=== PATIENT | female | born 1995 | race Caucasian/White ===

== ENCOUNTER → 2025-02-23 14:09 | Outpatient (REF) | payer OTHER, SELFPAY | LOC: HWRAD 14:09 | PROVIDERS: ATTENDING PHYSICIAN Obstetrics & Gynecology; FAMILY PHYSICIAN Family Medicine | DX: Z34.90 Encounter for supervision of normal pregnancy, unspecified, unspecified trimester (principal) | CPT/HCPCS: 76801 ==

== ENCOUNTER → 2025-03-30 14:19 | Outpatient (REF) | payer OTHER, SELFPAY | LOC: PNTC 14:19 | PROVIDERS: ATTENDING PHYSICIAN Obstetrics & Gynecology | DX: Z36.0 Encounter for antenatal screening for chromosomal anomalies (principal); Z36.82 Encounter for antenatal screening for nuchal translucency | CPT/HCPCS: 76801; 76813 ==

== ENCOUNTER → 2025-05-19 15:50 | Outpatient (REF) | payer OTHER, SELFPAY | LOC: PNTC 15:50 | PROVIDERS: ATTENDING PHYSICIAN Obstetrics & Gynecology | DX: Z34.90 Encounter for supervision of normal pregnancy, unspecified, unspecified trimester (principal) | CPT/HCPCS: 76805; 76817 ==

== ENCOUNTER 2025-06-15 15:58 | Observation (INO) | payer OTHER, SELFPAY | END 2025-06-15 17:05 | disposition home or self-care (01) | LOC: PNTC-IN 15:58 | PROVIDERS: ADMITTING PHYSICIAN Obstetrics & Gynecology | DX: Z04.1 Encounter for examination and observation following transport accident (principal); Z3A.24 24 weeks gestation of pregnancy | CPT/HCPCS: G0378 ==

== ENCOUNTER 2025-09-30 19:27 | Inpatient (IN) | payer OTHER, SELFPAY ==
[2025-09-30 20:20] VITALS: BP 137/91; BMI 32.2
[2025-09-30 20:29] LABS: Hematocrit 38.1 % (37.0-47.0); Hemoglobin 12.7 g/dL (12.0-16.0); Mean Corp Hgb Conc. 33.3 g/dL (33.0-37.0); Mean Corpuscular Volume 90.1 fL (81.0-99.0); Nucleated Red Blood Cells % 0 %; Platelet Count 169 10^3/uL (130-400); Red Cell Dist. Width 13.2 % (11.5-14.5)
[2025-09-30] MEDS: CYTOTEC 25 MICROGRAM VAG (20:55)
[2025-09-30 21:39] LABS: ALT (SGPT) 16 U/L (0-35); AST (SGOT) 23 U/L (14-36); Albumin 3.7 g/dl (3.5-5.0); Alkaline Phosphatase 184 U/L (38-126); Blood Urea Nitrogen 10 mg/dl (7-17); Calcium 9.4 mg/dl (8.4-10.2); Carbon Dioxide 22 mmol/L (22-30); Chloride 103 mmol/L (98-107); Estimated Creatinine Clearance 114 ml/min; Glucose 108 mg/dl (70-99); Potassium 4.0 mmol/L (3.5-5.1); Sodium 134 mmol/L (135-145); Total Protein 6.1 g/dl (6.3-8.2); eGFR > 60.00
[2025-10-01] MEDS: CYTOTEC 50 MICROGRAM PO (01:01)
[2025-10-01] MEDS: LR 1000 IV ×2 (02:47→09:02)
[2025-10-01] MEDS: CYTOTEC PO ×3 (07:18→21:50)
[2025-10-01] MEDS: PITOCIN 30 UNITS/NSS 500 ML IV (09:03)
[2025-10-01] MEDS: SUBLIMAZE 100 MCG EPIDURAL (09:34)
[2025-10-01] MEDS: FENTANYL/BUPIVACAINE 100 EPIDURAL ×2 (09:35→17:27)
[2025-10-01] MEDS: ZOFRAN 4 MG IV (21:56)
[2025-10-02] MEDS: FENTANYL/BUPIVACAINE 100 EPIDURAL (00:54)
[2025-10-02] MEDS: BICITRA 30 ML PO (04:24)
[2025-10-02] MEDS: TYLENOL 1000 MG PO (04:24)
[2025-10-02] MEDS: ZITHROMAX INFUSION 250 IV (04:24)
[2025-10-02] MEDS: ANCEF 10 IV (04:24)
--- NOTE | 2025-10-02 04:26 | HPS.HSE ---
Family Physician
-
Family Physician: Eliel Glez
Chief Complaint
-
induction of labor
History of Present Illness
30yo with an EDC 10/03/25 presents for scheduled elective IOL. Occasional cramps but otherwise no labor complaints. She was 2cm in the office
Issues: Rubella NI
PNL:AB pos/Ab neg/Ucx NEG/hb sag Neg/HIV Neg/Gc-CT Neg/RNI/Pap NIL-HPV pos/HCV Ab Neg/1hr 89/GBS Neg/
PMHx: None
POBHx: Prime
PSHx: Dental surgery
FHx: non-contributory
SHx:Neg x3
Meds:PNV
All:NKDA, pine nut
Medical History
Past Medical History
Past Medical History: Reports None
Past Surgical History: Reports Other
Social History
Tobacco: Non-smoker
Alcohol: None
Drug: None
Family History
Family History: Not pertinent
Allergies / Home Medications
Allergies reflects when Allergies were last updated in [facility].
Home Medications with original date entered in [facility]
Allergy/Medication List:
All: NKDA, pine nut
Meds: PNV
Review of Systems
-
A 12 point ROS was completed and negative except as noted: Yes
Physical Exam
Vital Signs
Vital Signs
Temp Pulse Resp BP
98.5 F 99 18 137/91
09/30/25 20:20 09/30/25 20:20 09/30/25 20:20 09/30/25 20:20
Physical Exam
General: Well Developed and Well Nourished
HEENT: NormoCephalic
Respiratory: Non Labored Respirations
Cardiac: Regular Rhythm
Genito-urinary: Other (SVE 60/-2)
Skin: Warm and Dry
Neuro: Awake, Alert and Oriented
Psych: Calm
Laboratory Results
-
09/30/25 20:14
09/30/25 21:07
Laboratory Results
Total Bilirubin 0.3 mg/dl (0.2-1.3) 09/30/25 21:07
AST 23 U/L (14-36) 09/30/25 21:07
ALT 16 U/L (0-35) 09/30/25 21:07
Alkaline Phosphatase 184 U/L (38-126) H 09/30/25 21:07
Impression/Plan
-
IMPRESSION:
A/P: 30yo @ 39.4 eIOL
PLAN:
-admit to L&D
-pain control prn
-cefm/toco
-cytotec 25mcg per vagina now and [id number] PO Q4hrs
-continue to monitor BP, some mild range on presentation. Labs normal
--- NOTE | 2025-10-02 06:14 | OR.RPT ---
Operative Report
Operative Report
Date of procedure: 10/02/2025
Preop diagnosis: IUP @39.6, arrest of dilation, preeclampsia without severe features
Postop diagnosis: same, occiput posterior position
Procedure: Primary low transverse section
Surgeon: Ramon
Anesthesia: Epidural, Evans
QBL: 415mL
Findings: Viable female born at 0505 from direct occiput posterior position, Apgars 9/9, normal appearing uterus, bilateral fallopian tubes and ovaries
Complications: none
Indication: Patient is a 30yo @39.5 who presented to Labor and Delivery on 09/30 for elective induction of labor. She was 2/60/-2 on admission and was given Cytotec 25mcg. She was given one additional dose of Cytotec overnight but was not able
to receive anymore secondary tachysystole. In the morning, her exam remained unchanged and a Cook balloon was placed. Pitocin was started but turned off because of tachysystole. After 2 hours, the Cook balloon fell out while she was in the bathroom.
She was 5/70/-2. She got an epidural and then spontaneously ruptured for clear fluid. She progressed to 7/80/-2. After couple hours, she remained unchanged and Pitocin was restarted. After another couple hours, she was still the same and IUPC was
placed. She then progressed to 8/80/-1. After 4 hours, her cervical exam remained unchanged. Discussed proceeding with primary section for arrest of dilation vs continuing with induction and patient wished to proceed with primary
section. Risks, benefits and alternatives discussed and all questions answered. Consents were signed. Anesthesia was notified.
Procedure: Patient was taken to the operating room where epidural was bolused and found to be adequate. 1g of TXA was given after delivery of the baby for prolonged labor. 2g of Ancef and 500mg azithromycin was given for antibiotic prophylaxis. The
abdomen was prepped with ChloraPrep. Villagomez catheter was draining slightly blood tinged urine at the start of the procedure. The patient was draped in the normal sterile fashion. She was placed in the dorsal supine position with a left lateral tilt.
A Pfannenstiel incision was made with a 10 blade and carried down to the fascia with a scalpel. Hemostasis achieved with Bovie. The fascia was incised and dissected laterally with Lee scissors. The superior aspect of the fascia was grasped with
Sudha clamps. The underlying rectus fascia was sharply dissected with Lee scissors. In a similar fashion the inferior aspect of the fascia was elevated with Sudha clamps and the rectus muscle was dissected off with Lee scissors. The rectus
muscles were down the midline to the level of the pubic symphysis with manual dissection. The peritoneum was elevated with hemostats and entered with Metzenbaum scissors. The peritoneum was then extended using manual traction and
Metzenbaum scissors.
Castillo retractor and bladder blade were placed revealing good visualization of the bladder. The vesicouterine peritoneum was identified. A thin lower uterine segment was noted. The lower uterine segment was incised with a scalpel. Clear amniotic
fluid noted at entry in the amniotic cavity. The uterine incision was extended bluntly with lateral and upward traction.
The fetus was in cephalic presentation. The head was elevated out of the pelvis with special attention paid to avoid using the uterine incision as a fulcrum. Gentle fundal pressure was applied once the head was brought to the incision. The head
delivered through the hysterotomy. The rest of the delivered without difficulty. Delayed cord clamping was performed. The was handed off to the mail processing equipment mechanic. IV oxytocin was started to facilitate uterine contractions. The placenta was
manually extracted. After the placenta was manually extracted. The uterus was exteriorized. Allis clamps were placed at the apices of the hysterotomy. The inside of the uterus was wiped with a lap sponge to assure complete removal of placental
membranes. Fundal massage was performed and uterus was firm. The uterine incision was closed with 0 Vicryl in a running locked fashion. A horizontal imbricating stitch was done on the hysterotomy with 0 Vicryl. There was oozing at the center of the
hysterotomy and a figure of eight was placed with 2-0 Vicryl to achieve hemostasis. The hysterotomy was inspected and noted to be hemostatic. The uterus was placed back in the abdomen. Blood clots and fluid were wiped out of the abdomen and pelvis
with moist laparotomy sponges. The hysterotomy was examined and was hemostatic.
The rectus muscles were inspected and any small oozing vessels were cauterized with the Bovie to achieve hemostasis. The fascial layer was closed in a running continuous fashion using 0 Vicryl. The subcutaneous tissue was copiously irrigated and any
small bleeding vessels were cauterized with Bovie cautery. The subcutaneous tissue was reapproximated in a running continuous fashion with 2-0 Plain. The skin was closed with 4-0 Vicryl in a subcuticular fashion and covered with skin glue and a
pressure dressing. The patient tolerated the procedure well. All sponge and instrument counts were correct times two.
The patient was taken to the recovery room in stable condition. Villagomez catheter was draining clear urine at the end of the procedure.
[2025-10-02] MEDS: COLACE PO (09:34)
[2025-10-02] MEDS: TORADOL 15 MG IV ×2 (11:46→17:51)
[2025-10-02] MEDS: PRENATAL PLUS 1 TABLET PO (11:46)
[2025-10-02] MEDS: COLACE 100 MG PO (20:16)
[2025-10-03] MEDS: TORADOL 15 MG IV ×2 (00:11→05:29)
[2025-10-03 05:42] LABS: Hematocrit 36.7 % (37.0-47.0); Hemoglobin 12.4 g/dL (12.0-16.0); Mean Corp Hgb Conc. 33.8 g/dL (33.0-37.0); Mean Corpuscular Volume 89.5 fL (81.0-99.0); Platelet Count 176 10^3/uL (130-400); Red Cell Dist. Width 13.6 % (11.5-14.5)
[2025-10-03] MEDS: COLACE 100 MG PO ×2 (08:24→20:37)
[2025-10-03] MEDS: TYLENOL 650 MG PO ×4 (08:24→20:42)
--- NOTE | 2025-10-03 11:02 | W.PN.ANS.POP ---
Anesthesia Post Operative
- Anesthesia Post Op Note
Vital Signs Stable-See Nursing Note: Yes
Airway Patent: Yes
Adequate Pain Control: Yes
Change in Mental Status: No
Current Postoperative Nausea & Vomiting: No
Anesthesia Complications: No
General Anesthetic Recall: No
Unplanned Admission: No
Post Op Hydration Adequate: Yes
[2025-10-03] MEDS: MOTRIN 600 MG PO ×2 (12:50→18:42)
[2025-10-03] MEDS: PRENATAL PLUS 1 TABLET PO (16:43)
[2025-10-03] MEDS: MYLICON 80 MG PO (20:42)
[2025-10-04] MEDS: TYLENOL 650 MG PO ×5 (02:03→23:29)
[2025-10-04] MEDS: MOTRIN 600 MG PO ×4 (02:03→20:18)
[2025-10-04] MEDS: COLACE 100 MG PO ×2 (08:12→19:18)
[2025-10-04] MEDS: PRENATAL PLUS PO (08:12)
[2025-10-04] MEDS: MYLICON 80 MG PO ×2 (08:16→23:30)
[2025-10-04] MEDS: PRENATAL PLUS 1 TABLET PO (08:17)
[2025-10-05] MEDS: MOTRIN 600 MG PO ×2 (02:53→08:30)
[2025-10-05] MEDS: TYLENOL 650 MG PO ×2 (06:19→10:57)
[2025-10-05] MEDS: COLACE 100 MG PO (08:23)
[2025-10-05] MEDS: PRENATAL PLUS 1 TABLET PO (08:23)
[2025-10-05] MEDS: MYLICON 80 MG PO (08:31)
--- NOTE | 2025-10-05 08:51 | W.DCSUMMARY ---
Discharge Summary
Discharge Data
Date of Admission: 09/30/25
Date of Discharge: 10/05/25
-
Pending Results: No
Hospital Course
Patient is a 30yo @39.5 who presented to Labor and Delivery on 09/30 for elective induction of labor. She was 2/60/-2 on admission and was given Cytotec 25mcg. She was given one additional dose of Cytotec overnight but was not able to receive
anymore secondary tachysystole. In the morning, her exam remained unchanged and a Cook balloon was placed. Pitocin was started but turned off because of tachysystole. After 2 hours, the Cook balloon fell out while she was in the bathroom. She was
5/70/-2. She got an epidural and then spontaneously ruptured for clear fluid. She progressed to 7/80/-2. After couple hours, she remained unchanged and Pitocin was restarted. After another couple hours, she was still the same and IUPC was placed.
She then progressed to 8/80/-1. After 4 hours, her cervical exam remained unchanged. Discussed proceeding with primary section for arrest of dilation vs continuing with induction and patient wished to proceed with primary section.
Risks, benefits and alternatives discussed and all questions answered. She underwent primary low transverse section, delivering a viable female . The procedure was uncomplicated. The estimated blood loss was 415mL. During her
induction, patient met criteria for preeclampsia without severe features. Her labs were within normal limits and her blood pressures were well controlled on no medications. On postop day one, she was doing well with no complaints. Her hemoglobin was
12.4. On postop day two, she had no complaints. She had no signs or symptoms of preeclampsia. On postop day three, she was doing well and ready for discharge home. She had no signs or symptoms of preeclampsia. Her blood pressures remained well
controlled on no meds. She was tolerating a regular diet, voiding spontaneously and had no heavy lochia. She was stable for discharge home. Discharge instructions and return precautions were reviewed and all questions answered. Preeclampsia
precautions were also reviewed with the patient. She was instructed to follow up in the office in one week for an incision and blood pressure check.
Discharge Plan
-
Patient Disposition: Home (Routine Discharge)
Discharge Diagnosis/Procedures: primary low transverse section, arrest of dilation, preeclampsia without severe features
Condition: Good
Diet: Regular
Activity: No strenuous activity
Driving Restrictions: No driving for 2 weeks
Bathing Restrictions: OK to Shower
Stand Alone Forms: LDRP Delivery, LDRP Hypertensive Disorders
Referrals:
Eliel Glez MD [Family Provider, Family Practice]
Thelma Navarro DO [Active, Gynecology] - in one week
Prescriptions:
New
acetaminophen 325 mg Tablet
650 mg PO Q4HPRN PRN (Reason: mild pain) Qty: 0 0RF
ibuprofen 600 mg Tablet
600 mg PO Q6HPRN PRN (Reason: cramps) Qty: 0 0RF
Continued
[id number] 1 mg Tablet
1 tab PO DAILY
Discharge Orders:
Discharge Patient (As Directed); Ordered 10/05/25
Ordered By: Thelma Navarro
Discharge Date and Time
Print Language: YI
[2025-10-05] MEDS: M-M-R II 0.5 ML SC (10:08)
[2025-10-05 13:59] LABS: Syphilis/T. pallidum Ab Reflex Negative (Negative)
== END 2025-10-05 11:24 | disposition home or self-care (01) | DRG 788 ==
LOC: LDRP 19:27
PROVIDERS: Student in an Organized Health Care Education/Training Program; ADMITTING PHYSICIAN Obstetrics & Gynecology; FAMILY PHYSICIAN Family Medicine
PROC: 3E0P7VZ Introduction of Hormone into Female Reproductive, Via Natural or Artificial Opening (ICD-10-PCS; 2025-09-30)
PROC: 3E033VJ Introduction of Other Hormone into Peripheral Vein, Percutaneous Approach (ICD-10-PCS; 2025-10-01)
PROC: 0U7C7DJ Dilation of Cervix with Intraluminal Device, Temporary, Via Natural or Artificial Opening (ICD-10-PCS; 2025-10-01)
PROC: 10H07YZ Insertion of Other Device into Products of Conception, Via Natural or Artificial Opening (ICD-10-PCS; 2025-10-01)
PROC: 10D00Z1 Extraction of Products of Conception, Low, Open Approach (ICD-10-PCS; 2025-10-02)
PROC: 3E0234Z Introduction of Serum, Toxoid and Vaccine into Muscle, Percutaneous Approach (ICD-10-PCS; 2025-10-05)
DX: O62.1 Secondary uterine inertia (principal); O14.04 Mild to moderate pre-eclampsia, complicating childbirth; O76 Abnormality in fetal heart rate and rhythm complicating labor and delivery; Z3A.39 39 weeks gestation of pregnancy; Z37.0 Single live birth; Z23 Encounter for immunization
CPT/HCPCS: 36415; 80053; 82570; 84156; 85025; 85027; 86780; 86850; 86900; 86901; 90707